=== PATIENT | female | born 1975 | race Caucasian/White ===

== ENCOUNTER 2017-06-28 13:46 | Emergency (ER) | payer OTHER ==
[~2017-06-28] VITALS: Ht 154.9 cm; Wt 61.7 kg
[2017-06-28 13:55] VITALS: BP 129/73
== END 2017-06-28 15:01 | disposition home or self-care (01) ==
LOC: ED 13:46
DX: S20.219A Contusion of unspecified front wall of thorax, initial encounter (principal); S40.022A Contusion of left upper arm, initial encounter; G47.00 Insomnia, unspecified; W22.8XXA Striking against or struck by other objects, initial encounter; Y93.89 Activity, other specified; Y99.8 Other external cause status; Y92.89 Other specified places as the place of occurrence of the external cause
CPT/HCPCS: Q0092

== ENCOUNTER 2017-07-04 14:12 | Emergency (ER) | payer OTHER ==
[2017-07-04 14:23] VITALS: BP 113/67
== END 2017-07-04 15:35 | disposition left against medical advice (07) ==
LOC: ED 14:12
DX: Z53.21 Procedure and treatment not carried out due to patient leaving prior to being seen by health care provider (principal)